=== PATIENT | female | born 1965 | race Caucasian/White ===

== ENCOUNTER → 2017-02-07 | Outpatient (CLI) | payer BC ==
[~2017-02-07] MED LIST: ALPR0.25 PO; BUPR300T3 PO; DROS1TAB PO; FLUT9.9S NS; GADOBUTROL 7.5 MMOL/7.5 ML VIAL IV ONE; LOSA25TA4 PO
--- NOTE | 2017-02-07 13:27 | KCIC ---
MR BRAIN WITH CONTRAST HISTORY: Paresthesia. Weakness on the right side of the body TECHNIQUE: Axial diffusion-weighted imaging was obtained. Additional axial FLAIR, and axial T2 weighted images were obtained. Sagittal and axial T1-weighted imaging was obtained prior to the administration of intravenous contrast material. Additional sagittal, axial, and coronal T1-weighted imaging was obtained after the administration of gadolinium based intravenous contrast material. FINDINGS: No abnormal signal within the brain parenchyma. 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 No restricted diffusion to indicate an acute infarct. No evidence of acute intracranial hemorrhage. No extra-axial fluid collections are identified. There is no mass effect or midline shift. Ventricular size is appropriate. Basal cisterns are patent. Visualized flow voids are normal in course, caliber, and signal. Globes and orbits are unremarkable. Paranasal sinuses and mastoid air cells are clear. IMPRESSION: No acute or recent infarct. No abnormal mass or mass effect. Electronically signed by: Justice Desai MD (02/07/2017 1:24 PM) [place] [id number]
== END | disposition home or self-care (01) ==
LOC: KCIC MRI 11:58
PROVIDERS: ATTEND Nurse Practitioner Family
DX: R20.9 Unspecified disturbances of skin sensation (principal); R53.1 Weakness
CPT/HCPCS: 70553; A9585

== ENCOUNTER → 2018-09-20 | Outpatient (CLI) | payer BC ==
[~2018-09-20] MED LIST changes: -GADOBUTROL 7.5 MMOL/7.5 ML VIAL IV ONE; -LOSA25TA4 PO; +LOSA25TA54 PO
--- NOTE | 2018-09-20 16:32 | KCIC ---
Bilateral digital screening mammograms with 3-D tomosynthesis: Reason for examination: Routine screening. Comparison is made to previous study dated 02/02/2013. Bilateral mammograms in CC and oblique projections were obtained with 2-D imaging and 3-D tomosynthesis imaging on a Siemens Inspiration unit and reviewed on the workstation. Interpretation was made with the benefit of CAD. The skin and nipples show no abnormalities. No abnormal axillary lymph nodes are seen. The breast parenchyma is extremely dense. (Breast density: Category D.) There appears to be a small nodular density at approximately the 2:00 B position of the left breast. This may represent an intramammary lymph node but recommend further evaluation with ultrasound. There are no other dominant masses, suspicious calcifications or architectural distortion. Impression: Small nodule at the 2:00 B position of the left breast. Recommend further evaluation with ultrasound. Your patient's mammogram demonstrates that she has dense breast tissue (breast density category C or D), which could hide abnormalities, and if she has other risk factors for breast cancer that have been identified, she might benefit from supplemental screening tests that may be suggested by you as her ordering physician. Dense breast tissue, in and of itself, is a relatively common condition. Therefore, this information is not provided to cause undue concern, but rather to raise your awareness and to promote discussion with your patient regarding the presence of other risk factors, in addition to dense breast tissue. Your patient's mammography results will be sent to her. BI-RAD Category 0: Incomplete. Needs additional imaging evaluation. "Our facility is accredited by the [employer]ammography [employer]." This patient's information has been entered into a reminder system for the patient to be notified with the results of her examination and a target date for the next mammogram. Electronically signed by: Ana West MD (09/20/2018 4:29 PM) [id number]
== END | disposition home or self-care (01) ==
LOC: KCIC MAMMO 10:56
PROVIDERS: ATTEND Obstetrics & Gynecology
DX: Z12.31 Encounter for screening mammogram for malignant neoplasm of breast (principal); N63.21 Unspecified lump in the left breast, upper outer quadrant
CPT/HCPCS: 77063; 77067

== ENCOUNTER → 2018-09-25 | Outpatient (CLI) | payer BC ==
--- NOTE | 2018-09-25 12:57 | KCIC ---
Left breast ultrasound: Reason for examination: Nodular density on screening mammogram. Comparison is made to mammographic exam dated 09/20/2018. Ultrasound examination was performed with attention to the upper outer quadrant of the left breast and the axilla. In the 2:00 position 4.5 cm from the nipple, there is a 3.5 mm nodule consistent with an intramammary lymph node which would appear to correspond with the area of mammographic concern. No other cystic or solid lesions are seen. No abnormal appearing lymph nodes are seen in the axilla. IMPRESSION: Small intramammary lymph node appears to correspond to the area of mammographic concern. No suspicious abnormalities are evident. Recommend routine mammographic follow-up. BI-RADS Category 2: Benign. "Our facility is accredited by the [employer] Mammography Program." This patient's information has been entered into a reminder system for the patient to be notified with the results of her examination and a target date for the next mammogram. Electronically signed by: Ana West MD (09/25/2018 12:54 PM) [id number]
== END | disposition home or self-care (01) ==
LOC: KCIC US 10:01
PROVIDERS: ATTEND Obstetrics & Gynecology
DX: R92.8 Other abnormal and inconclusive findings on diagnostic imaging of breast (principal)
CPT/HCPCS: 76641

== ENCOUNTER → 2019-03-29 | Outpatient (CLI) | payer BC ==
--- NOTE | 2019-03-29 14:27 | KCIC ---
MRI Cervical Spine Without Contrast History: Right paresthesia, numbness in the right hand for a couple of years Technique: Multiplanar, multi sequential noncontrast MR imaging was performed of the cervical spine. Comparison: None Findings: There is mild motion degradation. Cervical cord caliber is within normal limits. There is appearance of mild increased T2 and STIR signal of the cord at C4-5 although somewhat difficult to confidently visualize on the axial images and there is artifact present. There is no expansile signal abnormality. Cervical vertebral body stature is overall maintained. There is [id number] reversal of the lordotic curvature centered near C5-6. AP alignment is within normal limits. There is fairly advanced degenerative disc disease C4-5 and C6-7 and to a somewhat lesser degree at C5-6. There is C4-5 and trace C6-7 and C5-6 endplate edema likely reactive/degenerative in etiology. C2-C3: Neural foramina and spinal canal are adequate. C3-C4: There is minimal disc osteophyte complex and bulge. Central canal is borderline about 10 mm. There is facet degenerative change. There is [id number]-[id number] narrowing of the left neural foramen, right neural foramen adequate. C4-C5: There is minimal disc osteophyte complex and bulge, central canal minimally narrowed to about 8 to 9 mm. There is left uncovertebral degenerative change. There is minimal narrowing of the left neural foramen, right neural foramen adequate. C5-C6: There is minimal disc osteophyte complex and bulge, central canal minimally narrowed to about 9 mm. There is mild left uncovertebral degenerative change. There is mild to moderate narrowing of the left neural foramen, right neural foramen very minimally narrowed. C6-C7: There is disc osteophyte complex. There is superimposed broad protrusion more eccentric to the right lateral recess about 2 to 3 mm AP with indentation upon the ventral thecal sac greater in the right lateral recess. Central canal is narrowed to about 8 mm with a somewhat greater degree of narrowing of the right lateral recess. There is uncovertebral degenerative change bilaterally. There is fairly severe right and [id number]-vi-[id number] left neural foramina compromise. C7-T1: Spinal canal and neural foramina are adequate. Impression: 1. There is mild spinal stenosis with a greater degree of narrowing of the far right lateral recess by protrusion at C6-7, also mild spinal stenosis C4-5 and C5-6 as described. 2. There is fairly severe narrowing of the right C6-7 neural foramen in part from uncovertebral degenerative change, also degree of narrowing on the left at C6-7, C5-6, C3-C4. 3. There is multilevel degenerative disc disease greatest C4-5 and C6-7 and to lesser degree at C5-6 with spondylosis also at these levels. 4. Mild myelomalacia of the cord at C4-5 is difficult to exclude although possibly artifactual. Electronically signed by: Austin Wills MD (03/29/2019 2:24 PM) [facility]
== END | disposition home or self-care (01) ==
LOC: KCIC MRI 12:07
PROVIDERS: ATTEND Family Medicine
DX: M48.02 Spinal stenosis, cervical region (principal); R20.2 Paresthesia of skin; M50.223 Other cervical disc displacement at C6-C7 level; M50.30 Other cervical disc degeneration, unspecified cervical region; G95.89 Other specified diseases of spinal cord; M47.892 Other spondylosis, cervical region; Z90.710 Acquired absence of both cervix and uterus; M25.78 Osteophyte, vertebrae
CPT/HCPCS: 72141

== ENCOUNTER → 2019-05-03 | Outpatient (CLI) | payer BC ==
[~2019-05-03] MED LIST changes: +ACET325T9 PO; +ESTR1TAB15 PO; +LOSA-73 PO
--- NOTE | 2019-05-03 19:56 | PAIN ---
DATE OF SERVICE: 05/03/2019 INITIAL CONSULTATION FOR PAIN CLINIC CHIEF COMPLAINT: Neck and right upper extremity pain. HISTORY OF PRESENT ILLNESS: This is a 53-year-old female who presents with history of pain for about 3 years, not a result of any specific injury or action that she is aware of, but getting worse over time in the base of the neck, right upper extremity, radiating to the right deltoid, anterior and posteriorly into the biceps as well as triceps and numbness and tingling in all of the fingers, especially the thumb and the first 3 fingers. The patient reports no deficits, but significant fatigability to right upper extremity. The patient describes the pain as constant, tingling, numbness, radiating pain, aching and burning in the base of the neck with sharp pain as well. The patient reports it awakens her from sleep at times, not every night, does not affect her bowel or bladder control, does not affect her ability to walk. The patient reports she has tried physical therapy, also chiropractic treatment and exercise, she is currently doing all of these, it helped to a minor extent, but did not last very long. The patient reports she has tried CBD oil, also baby aspirins, which helped at times, but others did not. The patient continued doing stretching and strengthening exercises on her own, which she has learned from physical therapy and chiropractic but is not significantly reducing the pain. The patient reports no complete deficits however, but again significant fatigability. The patient did have MRI scan of the cervical spine showing mild stenosis with a greater degree of narrowing of the far right lateral recess by protrusion at C6-C7, also mild spinal stenosis at C4-C5 and C5-C6 with fairly severe narrowing of the right C6-C7 neural foramen in part from uncovertebral degenerative change and the degree of narrowing on the left at C6-C7, C5-C6 and C3-C4. The patient rates her disability rating from 0-10, 10 being the worst and 0 with family home responsibilities, recreation, occupation and sexual behavior, self-care and life support activities, and 1 with social activities. PAST MEDICAL HISTORY: Significant for hypertension. PREVIOUS SURGERY: Include hysterectomy and uterine ablation. FAMILY HISTORY: Significant for diabetes and hypertension. SOCIAL HISTORY: The patient drinks alcohol about 3-4 drinks daily, does not smoke, does not use any illegal, illicit or recreational drugs. Lives locally in [place], [place]. REVIEW OF SYSTEMS: The patient's review of systems is positive for those items mentioned in history of present illness. All systems reviewed and otherwise negative. It is complete, full and well documented on the patient's chart. PHYSICAL EXAMINATION: VITAL SIGNS: The patient's blood pressure is 143/95, pulse 84, respirations 18, temperature 98.0 degrees Fahrenheit, height is 5 feet 3 inches, weight is 113 pounds. GENERAL: The patient is awake, alert, oriented, appropriate, very pleasant demeanor. HEENT: Shows normocephalic, atraumatic. Extraocular movements are intact and symmetrical. Oral cavity: Mucous membranes moist and pink. Dentition is intact. NECK: Shows anterior throat is supple without palpable lymphadenopathy noted. Swallow reflex symmetrical. CHEST: Shows normal on inspection. Breath sounds clear to auscultation bilaterally. HEART: Shows S1, S2 clear. No murmurs auscultated. ABDOMEN: Soft, nontender, nondistended. BACK: Shows spine grossly in the midline, normal-appearing cervical lordotic curvature, thoracic kyphotic curvature and lumbar lordotic curvature. Cervical paraspinous muscle shows symmetrical on inspection, with palpation shows some moderate tenderness diffusely bilaterally going diffusely without significant radiation. The patient's neck shows good rotational motion both laterally as well as extension and flexion without significant difficulty but had some minor pain reported with full extension, but not with right or left lateral rotation, was performed greater than 45 degrees, closer to 90 degrees bilaterally without symptoms. EXTREMITIES: The patient's upper extremities show deep tendon reflexes at 2+ in the biceps and triceps tendons. Motor exam is strong with vegetable i farmworker strength rated at 5/5 and equal biceps and tricep flexion as well as vegetable i farmworker strength. Peripheral pulses are 2+ radial distribution. No peripheral edema is noted bilaterally. Shoulder shrug is strong and intact without loss of strength on resistance as is abduction of the shoulder to 90 degrees without loss of strength on resistance. There was a minor pain in the base of the neck and right shoulder with ____ maneuvers, but without loss of strength. Upper extremities are warm and dry to touch, equal in color and appearance. No peripheral edema is noted. The patient's skin shows warm and dry, good turgor. No edema. No sores, rashes or bruising throughout. IMPRESSION: 1. This is a 53-year-old female with long history about 3 years, increasing pain in a radicular fashion in the right upper extremity. 2. MRI scan of cervical spine as noted. 3. Hypertension. PLAN: Options were discussed with the patient including conservative medical management, physical therapies, interventional techniques and she has done physical therapies, doing exercises on her own currently. She would like to pursue interventional techniques. We discussed a cervical epidural steroid injection using description as well as anatomical models to describe the procedure. The patient will wait for preauthorization with her insurance provider and we will have her return for cervical epidural steroid injection at that time for a translaminar approach C6-C7 level for C6-C7 dermatomal radiculopathy on the right. The patient will continue doing stretching and strengthening exercises in the meantime. We will also try Medrol Dosepak. The patient was given instruction as well as side effects to be aware of with the medication and will follow up as scheduled. SYDNI GUILLEN MD DR: PATRICIA/naye JOB#: [id number] / [id number] LINDSEY Guzman MD
== END ==
LOC: PNCL 13:24
PROVIDERS: ATTEND Anesthesiology
DX: M54.12 Radiculopathy, cervical region (principal); I10 Essential (primary) hypertension; Z90.710 Acquired absence of both cervix and uterus; Z98.890 Other specified postprocedural states
CPT/HCPCS: G0463

== ENCOUNTER → 2019-05-25 | Outpatient (CLI) | payer BC ==
[~2019-05-25] MED LIST changes: +IOHEXOL 180 MG/ML 10 ML VIAL. ONE; +methylPREDNISolone ACETATE 40 MG/ML VIAL. ONE; +methylPREDNISolone ACETATE 80 MG/ML VIAL. ONE
--- NOTE | 2019-05-25 09:48 | PAIN ---
DATE OF SERVICE: 05/25/2019 PROGRESS NOTE FOR PAIN CLINIC DIAGNOSES: Cervical radiculopathy with cervical degenerative disk disease. HISTORY OF PRESENT ILLNESS: The patient is a 53-year-old female who returns for followup status post initial evaluation and preauthorization for cervical epidural steroid injection. The patient returns reporting still significant pain in the base of neck and right upper extremity as it was previously but the radiating pain is constant tingling, burning, aching, on and off in intensity in the right upper extremity, right arm and hand with numbness and tingling, worse with activity, awakens her from sleep very rarely, but worse during the day with reaching above her head with her right hand, weightbearing with the right upper extremity, repetitive motions, driving a car. The patient reports pain at 8 on a scale of 10 at its worst over the past week, 8 on average, 7 at its least and is an 8 today. The patient reports no new motor or sensory deficits, no new changes. PHYSICAL EXAMINATION: VITAL SIGNS: The patient's blood pressure 131/85, pulse 87, respirations 18, temperature 97.7 degrees Fahrenheit, height is 5 feet 3 inches, weight is 116 pounds. GENERAL: The patient is awake, alert, oriented, appropriate, very pleasant demeanor. HEENT: Shows normocephalic, atraumatic. Extraocular movements are intact and symmetrical. Oral cavity: Mucous membranes moist and pink. Dentition is intact. NECK: Shows anterior throat supple without palpable lymphadenopathy noted. Swallow reflex symmetrical. CHEST: Shows normal on inspection. Breath sounds clear to auscultation bilaterally. HEART: Shows S1, S2 clear. No murmurs auscultated. ABDOMEN: Soft, nontender, nondistended. No palpable organomegaly is noted. No rebound or guarding demonstrated. BACK: Shows spine grossly in the midline. Cervical paraspinous muscle shows symmetrical on inspection, with palpation shows some moderate tenderness diffusely bilaterally, but only diffusely without radiation with normal appearing cervical lordotic curvature, with palpation shows no radiation, but moderate tenderness in the inferior aspect of the cervical paraspinous muscles, more on the right than the left and into the superior medial trapezius on the right as well, but without trigger points. The patient shows full rotational motion of cervical spine, both laterally as well as extension and flexion without significant difficulty. EXTREMITIES: Upper extremities show deep tendon reflexes 2+ in the biceps, triceps tendons. Motor exam is strong with assistant professor of chemistry strength rated at 5/5 as is bicep and tricep flexion. Peripheral pulses are 2+ in the radial distribution bilaterally. No peripheral edema is noted. Options were discussed with the patient. The patient's old chart was reviewed as her current medication regimen updated. Current review of systems updated today as well. We will proceed with a cervical epidural steroid injection today with fluoroscopic guidance. Risks were again discussed including, but not limited to bleeding, infection, possibility of epidural hematoma, subsequent neurological compromise, dural puncture, headaches, spinal cord and/or nerve damage, side effects of steroid medication and poor results regarding pain control. The patient understands and wished to proceed. The patient will return to clinic in approximately 2 weeks for followup. She was counseled on return appointment, activity level and side effects to be aware of. DIAGNOSES: Cervical radiculopathy with cervical degenerative disk disease. PROCEDURE: Cervical epidural steroid injection, translaminar approach C6-C7 level using C-arm fluoroscopic guidance under sterile prep and drape using local anesthetic. MEDICATION INJECTED: A total of 120 mg Depo-Medrol plus 5 mL of preservative-free normal saline and 2 mL of contrast. CONDITION AT DISCHARGE: Stable. The patient tolerated procedure well, had no complications. SYDNI GUILLEN MD DR: PATRICIA/naye JOB#: [id number] / [id number]
== END ==
LOC: PNCL 08:56
PROVIDERS: ATTEND Anesthesiology
DX: M50.123 Cervical disc disorder at C6-C7 level with radiculopathy (principal)
CPT/HCPCS: 62321; J1030; J1040; Q9965

== ENCOUNTER → 2019-06-12 | Outpatient (CLI) | payer BC ==
--- NOTE | 2019-06-12 11:07 | PAIN ---
DATE OF SERVICE: 06/12/2019 DIAGNOSES: Cervical radiculopathy with cervical degenerative disk disease. HISTORY OF PRESENT ILLNESS: The patient is a 53-year-old female who returns for followup status post cervical epidural steroid injection x 1 about 60% improvement after the last injection. The patient reports she is very pleased with her progress. Still some pain in the right upper extremity, base of the neck, but much improved. The patient has been increasing distance walking, doing work activities at home as well as with driving the car doing repetitive motion with the right upper extremity with much greater ease and comfort, sleeping better at night. The patient reports it does not awaken her from sleep at this time. The patient rates her pain as a 5 on a scale of 10 at its worst over the past week, 5 on average, 4 at its least and is a 5 today. The patient reports it is aching, tingling, burning, radiating at times, on and off in intensity, though much decreased from previous. The patient reports no new motor or sensory deficits or other complaints. PHYSICAL EXAMINATION: VITAL SIGNS: The patient's blood pressure 142/91, pulse 90, respirations 18, temperature 98.1 degrees Fahrenheit, height is 5 feet 3 inches, weight is 114 pounds. GENERAL: The patient is awake, alert, oriented, appropriate, very pleasant demeanor. The patient is accompanied by her spouse. HEENT: Shows normocephalic, atraumatic. Extraocular movements are intact and symmetrical. Oral cavity, mucous membranes moist and pink. Dentition is intact. NECK: Shows anterior throat supple without palpable lymphadenopathy noted. Swallow reflex symmetrical. CHEST: Shows normal on inspection. Breath sounds clear to auscultation bilaterally. HEART: Shows S1, S2 clear. No murmurs auscultated. ABDOMEN: Soft, nontender, nondistended. BACK: Shows spine grossly in the midline. Cervical paraspinous muscle shows symmetrical on inspection, on palpation shows some moderate tenderness diffusely without radiation, no asymmetry, no atrophy or hypertrophy. The patient has good rotational motion of cervical spine, both laterally as well as extension and flexion without significant difficulty. EXTREMITIES: The patient's upper extremities show deep tendon reflexes 2+ in the biceps, triceps tendons. Motor exam is strong with 5/5 supervisor engine repair strength, bicep and tricep flexion and symmetrical bilaterally. Peripheral pulses are 2+ radial. No peripheral edema is noted bilaterally. Options were discussed with the patient. The patient's old chart was reviewed as her current medication regimen updated. Current review of systems updated today as well. We will proceed with a second in the series of cervical epidural steroid injection today with fluoroscopic guidance. Risks were again discussed including, but not limited to bleeding, infection, possibility of epidural hematoma, subsequent neurological compromise, dural puncture, headaches, spinal cord and/or nerve damage, side effects of steroid medication and poor results regarding pain control. The patient understands and wished to proceed. The patient will return to clinic in approximately 2 weeks for followup. She was counseled on return appointment, activity level and side effects to be aware of. DIAGNOSES: Cervical radiculopathy with cervical degenerative disk disease. PROCEDURE: Cervical epidural steroid injection, translaminar approach C6-C7 level using C-arm fluoroscopic guidance under sterile prep and drape using local anesthetic. MEDICATION INJECTED: A total of 120 mg Depo-Medrol plus 5 mL of preservative-free normal saline and 2 mL of contrast. CONDITION AT DISCHARGE: Stable. The patient tolerated the procedure well, had no complications. SYDNI GUILLEN MD DR: PATRICIA/naye JOB#: [id number] / [id number]
== END ==
LOC: PNCL 08:51
PROVIDERS: ATTEND Anesthesiology
DX: M50.123 Cervical disc disorder at C6-C7 level with radiculopathy (principal)
CPT/HCPCS: 62321; J1030; J1040; Q9965

== ENCOUNTER → 2020-09-26 | Outpatient (CLI) | payer BC ==
[~2020-09-26] MED LIST changes: +ESTR-113 PO; -ESTR1TAB15 PO; -IOHEXOL 180 MG/ML 10 ML VIAL. ONE; -methylPREDNISolone ACETATE 40 MG/ML VIAL. ONE; -methylPREDNISolone ACETATE 80 MG/ML VIAL. ONE
--- NOTE | 2020-09-26 14:03 | KCIC ---
Bilateral digital screening mammograms with 3-D tomosynthesis: Reason for examination: Routine screening. Comparison is made to previous studies dated 09/20/2018 and 02/02/2013. Bilateral mammograms in CC and oblique projections were obtained with 2-D imaging and 3-D tomosynthes is imaging on a Siemens Inspiration unit and reviewed on the workstation. Interpretation was made demetri gonzalez the benefit of CAD. The skin and nipples show no abnormalities. No abnormal axillary lymph nodes are seen. The breast par enchyma is extremely dense. (Breast density: Category D.) There continues be a small circumscribed no dule at the 11:30 position of the left breast which is stable. There are no new dominant masses, susp icious calcifications or architectural distortion. Impression: No evidence of malignancy. Recommend routine screening. Your patient's mammogram demonstrates that she has dense breast tissue (breast density category C or D), which could hide abnormalities, and if she has other risk factors for breast cancer that have bee n identified, she might benefit from supplemental screening tests that may be suggested by you as her ordering physician. Dense breast tissue, in and of itself, is a relatively common condition. Therefo re, this information is not provided to cause undue concern, but rather to raise your awareness and t o promote discussion with your patient regarding the presence of other risk factors, in addition to d ense breast tissue. Your patient's mammography results will be sent to her. BI-RAD Category 2: Benign. "Our facility is accredited by the [employer]amm[employer]." This patient's information has been entered into a reminder system for the patient to be notified wit h the results of her examination and a target date for the next mammogram. Electronically signed by: Ana West MD (09/26/2020 2:00 PM) [id number]
== END ==
LOC: KCIC MAMMO 11:07
PROVIDERS: ATTEND Family Medicine
DX: Z12.31 Encounter for screening mammogram for malignant neoplasm of breast (principal)
CPT/HCPCS: 77063; 77067